=== PATIENT | male | born 1980 | race Caucasian/White ===

== ENCOUNTER → 2018-01-22 | Outpatient (CLI) | payer OTHER | END | disposition home or self-care (01) | LOC: CVU 07:02 | PROVIDERS: ATTEND Internal Medicine Cardiovascular Disease | DX: I10 Essential (primary) hypertension (principal); I51.7 Cardiomegaly | CPT/HCPCS: 93306 ==

== ENCOUNTER 2019-02-04 14:23 | Outpatient (CLI) | payer OTHER | END 2019-02-04 23:59 | disposition home or self-care (01) | LOC: RAD 14:23 | PROVIDERS: ATTEND Family Medicine | DX: M79.605 Pain in left leg (principal); R22.42 Localized swelling, mass and lump, left lower limb ==